=== PATIENT | female | born 1990 | race Two or more races ===

== ENCOUNTER → 2017-12-17 | Emergency (ER) | payer OTHER ==
[~2017-12-17] VITALS: Ht 167.6 cm; Wt 90.7 kg
[~2017-12-17] MED LIST: ALBUTEROL2.5 MG/3 M IH; CONEX TABLET1 EACH PO; DOLOGEN CAPLET1 EACH PO; DOLOGESIC-DF 51 EACH PO; KETO10TA2 PO; LEVSIN/SL0.125 MG SL; LEVSIN0.125 MG PO; MOTRIN800 MG PO; PEPCID40 MG PO; PROTONIX20 MG PO; TUSICOF LIQUID120 ML PO; ZANTAC300 MG PO; ZOFRAN4 MG PO; ZYNCOF 20-400120 ML PO
== END | disposition home or self-care (01) ==
LOC: ER 02:29
DX: J06.9 Acute upper respiratory infection, unspecified (principal)

== ENCOUNTER 2018-06-29 14:33 | Emergency (ER) | payer OTHER ==
[~2018-06-29] VITALS: Ht 167.6 cm; Wt 99.8 kg
== END 2018-06-29 19:43 | disposition home or self-care (01) ==
LOC: ER 14:33
DX: J45.998 Other asthma (principal); J32.8 Other chronic sinusitis

== ENCOUNTER 2019-04-12 17:32 | Emergency (ER) | payer OTHER ==
[~2019-04-12] VITALS: Ht 167.6 cm; Wt 101.6 kg
== END 2019-04-12 19:33 | disposition home or self-care (01) ==
LOC: ER 17:32
DX: S00.83XA Contusion of other part of head, initial encounter (principal); S71.152A Open bite, left thigh, initial encounter; Y04.1XXA Assault by human bite, initial encounter; Z63.0 Problems in relationship with spouse or partner; Y93.89 Activity, other specified; Y92.89 Other specified places as the place of occurrence of the external cause; Y99.8 Other external cause status

== ENCOUNTER 2019-05-27 04:11 | Emergency (ER) | payer OTHER ==
[~2019-05-27] VITALS: Ht 167.6 cm; Wt 90.7 kg
== END 2019-05-27 05:16 | disposition home or self-care (01) ==
LOC: ER 04:11
DX: K08.89 Other specified disorders of teeth and supporting structures (principal)

== ENCOUNTER 2019-09-13 09:03 | Emergency (ER) | payer OTHER ==
[~2019-09-13] VITALS: Ht 167.6 cm; Wt 99.8 kg
[2019-09-13] MEDS ORDERED: SKELAXIN800 MG PO (13:10)
[2019-09-13] MEDS ORDERED: MECLIZINE HCL25 MG PO (13:10)
[2019-09-13] MEDS ORDERED: VOLTAREN-XR100 MG PO (13:10)
== END 2019-09-13 13:41 | disposition home or self-care (01) ==
LOC: ER 09:03
DX: H81.11 Benign paroxysmal vertigo, right ear (principal); M54.2 Cervicalgia; M62.838 Other muscle spasm

== ENCOUNTER 2019-12-26 16:15 | Emergency (ER) | payer OTHER ==
[~2019-12-26] VITALS: Ht 167.6 cm; Wt 99.8 kg
[~2019-12-26 16:15] MED LIST changes: +MECLIZINE HCL25 MG PO; +SKELAXIN800 MG PO; +VOLTAREN-XR100 MG PO
== END 2019-12-26 19:29 | disposition home or self-care (01) ==
LOC: ER 16:15
DX: B34.9 Viral infection, unspecified (principal); R10.33 Periumbilical pain

== ENCOUNTER 2020-03-01 11:34 | Emergency (ER) | payer OTHER ==
[~2020-03-01] VITALS: Ht 167.6 cm; Wt 99.8 kg
[2020-03-01] MEDS ORDERED: CONCEPT DHA CA1 EACH PO (16:00)
== END 2020-03-01 16:09 | disposition home or self-care (01) ==
LOC: ER 11:34
DX: N39.0 Urinary tract infection, site not specified (principal); N91.1 Secondary amenorrhea; Z33.1 Pregnant state, incidental

== ENCOUNTER 2020-03-08 23:21 | Emergency (ER) | payer OTHER ==
[~2020-03-08] VITALS: Ht 167.6 cm; Wt 99.8 kg
[~2020-03-08 23:21] MED LIST changes: +CONCEPT DHA CA1 EACH PO
== END 2020-03-09 02:40 | disposition home or self-care (01) ==
LOC: ER 23:21
DX: O26.851 Spotting complicating pregnancy, first trimester (principal); Z34.01 Encounter for supervision of normal first pregnancy, first trimester

== ENCOUNTER 2020-03-19 16:38 | Emergency (ER) | payer OTHER ==
[~2020-03-19] VITALS: Ht 167.6 cm; Wt 97.5 kg
== END 2020-03-19 20:50 | disposition home or self-care (01) ==
LOC: ER 16:38
DX: O21.0 Mild hyperemesis gravidarum (principal); O23.41 Unspecified infection of urinary tract in pregnancy, first trimester; Z34.81 Encounter for supervision of other normal pregnancy, first trimester

== ENCOUNTER 2020-04-07 17:09 | Emergency (ER) | payer OTHER ==
[~2020-04-07] VITALS: Ht 167.6 cm; Wt 97.1 kg
== END 2020-04-07 22:16 | disposition home or self-care (01) ==
LOC: ER 17:09
DX: O20.0 Threatened abortion (principal); Z3A.10 10 weeks gestation of pregnancy

== ENCOUNTER → 2020-05-18 | Outpatient (CLI) | payer OTHER | END | disposition home or self-care (01) | LOC: PRENATAL 09:30 | PROVIDERS: ATTEND Specialist | DX: O26.842 Uterine size-date discrepancy, second trimester (principal); O28.1 Abnormal biochemical finding on antenatal screening of mother; O34.42 Maternal care for other abnormalities of cervix, second trimester; O99.212 Obesity complicating pregnancy, second trimester ==

== ENCOUNTER → 2020-06-12 | Emergency (ER) | payer OTHER ==
[~2020-06-12] VITALS: Ht 167.6 cm; Wt 95.3 kg
[~2020-06-12] MED LIST changes: +MOTION SICKNESS25 M1 PO; +PRE NATAL
== END | disposition home or self-care (01) ==
LOC: ER 03:58
DX: G43.909 Migraine, unspecified, not intractable, without status migrainosus (principal); R42 Dizziness and giddiness

== ENCOUNTER → 2020-06-15 | Outpatient (CLI) | payer OTHER ==
[~2020-06-15] MED LIST changes: +PRENATAL 19 TA1 EAC1 PO
== END | disposition home or self-care (01) ==
LOC: PRENATAL 08:58
PROVIDERS: ATTEND Obstetrics & Gynecology Maternal & Fetal Medicine
DX: O35.0XX1 Maternal care for (suspected) central nervous system malformation in fetus, fetus 1 (principal); O28.1 Abnormal biochemical finding on antenatal screening of mother; O34.42 Maternal care for other abnormalities of cervix, second trimester; Z36.89 Encounter for other specified antenatal screening; Z3A.20 20 weeks gestation of pregnancy

== ENCOUNTER 2020-07-15 21:46 | Outpatient (CLI) | payer OTHER ==
[~2020-07-15 21:46] MED LIST changes: -PRENATAL 19 TA1 EAC1 PO
[2020-07-15] MEDS ORDERED: PRENATAL 19 TA1 EAC1 PO (22:23)
== END 2020-07-16 08:55 | disposition home or self-care (01) ==
LOC: OBS/DEL 21:46
PROVIDERS: ATTEND Specialist
DX: O26.892 Other specified pregnancy related conditions, second trimester (principal); R10.13 Epigastric pain

== ENCOUNTER → 2020-08-11 | Outpatient (CLI) | payer OTHER ==
[~2020-08-11] MED LIST changes: +PRENATAL 19 TA1 EAC1 PO
== END | disposition home or self-care (01) ==
LOC: PRENATAL 08-10 08:00
PROVIDERS: ATTEND Obstetrics & Gynecology Maternal & Fetal Medicine
DX: O26.843 Uterine size-date discrepancy, third trimester (principal); O28.1 Abnormal biochemical finding on antenatal screening of mother; Z36.89 Encounter for other specified antenatal screening; Z3A.28 28 weeks gestation of pregnancy

== ENCOUNTER 2021-11-26 23:24 | Emergency (ER) | payer OTHER ==
[~2021-11-26] VITALS: Ht 167.6 cm; Wt 104.3 kg
[2021-11-27] MEDS ORDERED: TUSNEL LIQUID178 ML PO (01:09)
[2021-11-27] MEDS ORDERED: MEDROLPACK PO (01:09)
[2021-11-27] MEDS ORDERED: DOLOGEN CAPLET1 EACH PO (01:09)
[2021-11-27] MEDS ORDERED: ZITHROMAX500 MG PO (01:09)
== END 2021-11-27 01:18 | disposition home or self-care (01) ==
LOC: ER 23:24
DX: B34.9 Viral infection, unspecified (principal)

== ENCOUNTER → 2023-08-17 | Emergency (ER) | payer OTHER ==
[~2023-08-17] MED LIST changes: +ECOTRIN81 MG; +LEVOTHYROXINE25 MCG PO; +MEDROLPACK PO; +ONDANSETRON ODT4 MG PO; +PRENATAL + DHA1 EAC1; +TUSNEL LIQUID178 ML PO; +ZITHROMAX500 MG PO
== END | disposition left against medical advice (07) ==
LOC: ER 20:58
DX: Z53.21 Procedure and treatment not carried out due to patient leaving prior to being seen by health care provider (principal)

== ENCOUNTER 2023-09-18 12:00 | Outpatient (CLI) | payer OTHER ==
[~2023-09-18 12:00] MED LIST changes: -ECOTRIN81 MG; -LEVOTHYROXINE25 MCG PO; -ONDANSETRON ODT4 MG PO; -PRENATAL + DHA1 EAC1
== END 2023-09-18 12:12 | disposition home or self-care (01) ==
LOC: PRENATAL 12:00
PROVIDERS: ATTEND Obstetrics & Gynecology Maternal & Fetal Medicine
DX: O36.80X0 Pregnancy with inconclusive fetal viability, not applicable or unspecified (principal); Z36.82 Encounter for antenatal screening for nuchal translucency; Z36.9 Encounter for antenatal screening, unspecified; Z14.8 Genetic carrier of other disease; O09.529 Supervision of elderly multigravida, unspecified trimester; O10.019 Pre-existing essential hypertension complicating pregnancy, unspecified trimester; O99.280 Endocrine, nutritional and metabolic diseases complicating pregnancy, unspecified trimester; O30.90 Multiple gestation, unspecified, unspecified trimester; O34.40 Maternal care for other abnormalities of cervix, unspecified trimester; Z3A.11 11 weeks gestation of pregnancy

== ENCOUNTER 2023-09-20 22:15 | Emergency (ER) | payer OTHER ==
[~2023-09-20] VITALS: Ht 167.6 cm; Wt 68.0 kg
[2023-09-20] MEDS ORDERED: ECOTRIN81 MG (22:23)
[2023-09-20] MEDS ORDERED: PRENATAL + DHA1 EAC1 (22:23)
[2023-09-20] MEDS ORDERED: LEVOTHYROXINE25 MCG PO (22:23)
[2023-09-20 23:48] LABS: HEMATOCRIT 33.3 % (36.0-45.00); HEMOGLOBIN 11.2 g/dL (12.0-15.00); MEAN CELL VOLUME 79.2 fL (80.00-100.00); MEAN CORPUSCULAR HEMOGLOBIN 26.5 pg (27.00-32.0); MEAN CORPUSCULAR HGB CONC 33.5 g/dl (32.0-36.0); PLATELET COUNT 276 K/uL (150-450); RED CELL DISTRIBUTION WIDTH 12.9 % (11.5-14.5)
[2023-09-21 00:08] LABS: CALCIUM 9.2 mg/dL (8.5-10.1); CREATININE SERUM 0.32 mg/dL (0.55-1.02); GFR 236.38; POTASSIUM 3.29 mEq/L (3.5-5.1)
[2023-09-21] MEDS ORDERED: ONDANSETRON ODT4 MG PO (06:23)
[2023-09-21] MEDS ORDERED: PEPCID40 MG PO (06:23)
== END 2023-09-21 06:33 ==
LOC: ER 22:15
DX: O21.0 Mild hyperemesis gravidarum (principal); Z3A.11 11 weeks gestation of pregnancy

== ENCOUNTER 2023-11-21 12:30 | Outpatient (CLI) | payer OTHER ==
[~2023-11-21 12:30] MED LIST changes: +ECOTRIN81 MG; +LEVOTHYROXINE25 MCG PO; +ONDANSETRON ODT4 MG PO; +PRENATAL + DHA1 EAC1
== END 2023-11-21 12:31 | disposition home or self-care (01) ==
LOC: PRENATAL 12:30
PROVIDERS: ATTEND Obstetrics & Gynecology Maternal & Fetal Medicine
DX: O35.3XX0 Maternal care for (suspected) damage to fetus from viral disease in mother, not applicable or unspecified (principal); O44.00 Complete placenta previa NOS or without hemorrhage, unspecified trimester; O09.529 Supervision of elderly multigravida, unspecified trimester; O10.019 Pre-existing essential hypertension complicating pregnancy, unspecified trimester; O99.280 Endocrine, nutritional and metabolic diseases complicating pregnancy, unspecified trimester; O30.90 Multiple gestation, unspecified, unspecified trimester; O34.40 Maternal care for other abnormalities of cervix, unspecified trimester; Z3A.20 20 weeks gestation of pregnancy

== ENCOUNTER 2023-12-19 09:57 | Outpatient (CLI) | payer OTHER | END 2023-12-19 09:58 | disposition home or self-care (01) | LOC: PRENATAL 09:57 | PROVIDERS: ATTEND Obstetrics & Gynecology Maternal & Fetal Medicine | DX: O26.849 Uterine size-date discrepancy, unspecified trimester (principal); O09.529 Supervision of elderly multigravida, unspecified trimester; O10.019 Pre-existing essential hypertension complicating pregnancy, unspecified trimester; O99.280 Endocrine, nutritional and metabolic diseases complicating pregnancy, unspecified trimester; O30.90 Multiple gestation, unspecified, unspecified trimester; Z3A.24 24 weeks gestation of pregnancy ==

== ENCOUNTER 2024-01-16 08:35 | Outpatient (CLI) | payer OTHER | END 2024-01-16 08:39 | disposition home or self-care (01) | LOC: PRENATAL 08:35 | PROVIDERS: ATTEND Obstetrics & Gynecology Maternal & Fetal Medicine | DX: O26.849 Uterine size-date discrepancy, unspecified trimester (principal); O09.529 Supervision of elderly multigravida, unspecified trimester; O10.019 Pre-existing essential hypertension complicating pregnancy, unspecified trimester; O99.280 Endocrine, nutritional and metabolic diseases complicating pregnancy, unspecified trimester; O30.90 Multiple gestation, unspecified, unspecified trimester; O34.40 Maternal care for other abnormalities of cervix, unspecified trimester; Z3A.28 28 weeks gestation of pregnancy ==

== ENCOUNTER 2024-01-21 18:54 | Outpatient (CLI) | payer OTHER ==
[~2024-01-21] VITALS: Ht 167.6 cm; Wt 78.0 kg
[2024-01-21] MEDS ORDERED: RINGERS SOLUTION,LACTATED 1,000 ML IV SCH (19:15)
[2024-01-21] MEDS ORDERED: AMPICILLIN SODIUM 2,000 MG VIAL IV ONE (19:15)
[2024-01-21 19:21] LABS: HEMATOCRIT 31.8 % (36.0-45.00); HEMOGLOBIN 10.7 g/dL (12.0-15.00); MEAN CELL VOLUME 80.3 fL (80.00-100.00); MEAN CORPUSCULAR HEMOGLOBIN 26.9 pg (27.00-32.0); MEAN CORPUSCULAR HGB CONC 33.5 g/dl (32.0-36.0); PLATELET COUNT 330 K/uL (150-450); RED BLOOD COUNT 3.95 M/uL (4.00-6.00); RED CELL DISTRIBUTION WIDTH 12.8 % (11.5-14.5)
[2024-01-21 19:21] LABS: PH,URINE 7.5 (5.0-8.0); URINE APPEARANCE Clear; URINE BILIRRUBIN Negative (NEGATIVE); URINE BLOOD Negative; URINE COLOR Yellow; URINE GLUCOSE Negative (NEGATIVE); URINE LEUKOCYTE Small; URINE NITRATE Negative; URINE PROTEIN Trace (NEGATIVE)
[2024-01-21 19:22] LABS: URINE BACTERIA 4050.6 uL (0.0-1933); URINE EPITHELIAL CELLS 40.3 uL (0.0-38.8); URINE RBC 3.5 uL (0.0-20.8); URINE WBC 66.4 uL (0.0-23.2)
[2024-01-21 19:49] LABS: ALBUMIN 2.7 gm/dL (3.4-5.0); BILIRUBIN TOTAL 0.24 mg/dL (0.3-1.2); CALCIUM 8.7 mg/dL (8.5-10.1); CREATININE SERUM 0.34 mg/dL (0.55-1.02); GFR 219.11; GLOBULINA 3.7 G/DL (2.4-3.5); POTASSIUM 4.53 mEq/L (3.5-5.1); TOTAL PROTEIN 6.4 gm/dL (6.4-8.2)
[2024-01-22] MEDS ORDERED: AMPICILLIN SODIUM 1,000 MG VIAL IV SCH
[2024-01-22] MEDS ORDERED: AMPICILLIN TRI500 MG PO (07:51)
== END 2024-01-22 10:09 | disposition home or self-care (01) ==
LOC: OBS/DEL 18:54
PROVIDERS: ATTEND Specialist
DX: O30.003 Twin pregnancy, unspecified number of placenta and unspecified number of amniotic sacs, third trimester (principal); O09.43 Supervision of pregnancy with grand multiparity, third trimester; Z3A.29 29 weeks gestation of pregnancy

== ENCOUNTER 2024-02-13 08:02 | Outpatient (CLI) | payer OTHER ==
[~2024-02-13 08:02] MED LIST changes: +AMPICILLIN TRI500 MG PO
== END 2024-02-13 08:04 | disposition home or self-care (01) ==
LOC: PRENATAL 08:02
PROVIDERS: ATTEND Obstetrics & Gynecology Maternal & Fetal Medicine
DX: O26.849 Uterine size-date discrepancy, unspecified trimester (principal); O09.529 Supervision of elderly multigravida, unspecified trimester; O30.90 Multiple gestation, unspecified, unspecified trimester; O34.40 Maternal care for other abnormalities of cervix, unspecified trimester; O10.019 Pre-existing essential hypertension complicating pregnancy, unspecified trimester; O36.8199 Decreased fetal movements, unspecified trimester, other fetus; Z3A.32 32 weeks gestation of pregnancy